=== PATIENT | female | born 1980 | race Caucasian/White ===

== ENCOUNTER → 2016-08-29 | Outpatient (CLI) | payer BC | END | disposition home or self-care (01) | LOC: C.LAB1850 11:47 | PROVIDERS: ATTEND Psychiatry & Neurology Neurology | DX: R90.89 Other abnormal findings on diagnostic imaging of central nervous system (principal); G43.709 Chronic migraine without aura, not intractable, without status migrainosus ==

== ENCOUNTER → 2017-02-22 | Outpatient (CLI) | payer BC ==
[2017-02-26 07:29] LABS: VIT B1 PLASMA(THIAMIN)**90353 29 nmol/L (8-30)
== END | disposition home or self-care (01) ==
LOC: C.LAB1850 10:39
PROVIDERS: ATTEND Psychiatry & Neurology Neurology
DX: E53.8 Deficiency of other specified B group vitamins (principal); E51.9 Thiamine deficiency, unspecified; R79.0 Abnormal level of blood mineral

== ENCOUNTER → 2017-04-27 | Outpatient (CLI) | payer BC ==
[~2017-04-27] MED LIST: GADAVIST IV PRN
--- NOTE | 2017-04-27 09:43 | DIAGNOSTIC IMAGING REPORT ---
MRI OF THE CERVICAL SPINE WITH AND WITHOUT CONTRAST CLINICAL HISTORY: Upper extremity numbness. Possible multiple sclerosis. COMPARISON: None. TECHNIQUE: Utilizing a 1.5 Maria T magnet and dedicated coil, multiplanar, multiecho imaging of the cervical spine was performed before and after intravenous administration of 7.5 of Gadavist. FINDINGS: Alignment of the cervical spine is anatomic. Vertebral body heights are maintained. There is no marrow replacement or marrow edema. There is no intracanalicular mass or fluid collection. Cervical cord signal and caliber are normal. The MRI of the brain will be reported separately. C2-C3: The central canal and neural foramen are patent. C3-C4: The central canal and neural foramen are patent. C4-C5: There is disc bulge with a small superimposed central disc protrusion. There is minimal narrowing of the central canal and both neural foramen. C5-C6: Central canal and neural foramen are patent. C6-C7: The central canal and neural foramen are patent. C7-T1: The central canal and neural foramen are patent. IMPRESSION: 1. Normal cervical cord signal and caliber. No foci of demyelination within the cervical cord by MRI. 2. Disc bulge with small central disc protrusion at C4-C5 that results in minimal narrowing of the central canal and mild narrowing of both neural foramen, slightly greater on the right. Electronically signed by: Cayden Hodge M.D. 04/27/2017 9:41 AM Dictated Date/Time: 04/27/2017 9:34 AM
--- NOTE | 2017-04-27 09:49 | DIAGNOSTIC IMAGING REPORT ---
BRAIN COMBO FOR MS CLINICAL HISTORY: 36 years-old Female presenting with G44.039 Paroxysmal hemicrania, R20.0 Left facial [id number], headaches, bilateral facial and upper extremity numbness more on the right, sleepless nights. TECHNIQUE: Multisequence, multiplanar MR imaging of the brain was performed before and after the administration of intravenous contrast. IV contrast: 7.5 mL of Gadavist. COMPARISON: None available for comparison. FINDINGS: Ventricles and sulci normal in size. Three foci of T2/FLAIR hyperintensity noted in the subcortical white matter of the right frontal lobe. These do not demonstrate restricted diffusion or enhancement on postcontrast imaging. No mass effect or midline shift. No restricted diffusion to suggest acute ischemia. No hemorrhage. No extra-axial fluid collection. T2 skull base flow voids preserved. Bone marrow signal intensity within the calvarium within normal limits. Mild mucosal thickening in the maxillary sinuses, ethmoid air cells, and minimally in the frontal sinuses. IMPRESSION: 1. Three nonspecific foci of T2/FLAIR hyperintensity in the subcortical white matter of the right frontal lobe. No associated restricted diffusion or enhancement. This is not characteristic of a single entity. The patient's age would suggest against chronic small vessel ischemic change. Demyelinating disease or an atypical infectious etiology cannot be excluded, though the absence of enhancement would suggest against active disease. This could be followed. Electronically signed by: Boom Mao M.D. 04/27/2017 9:48 AM Dictated Date/Time: 04/27/2017 9:40 AM
== END | disposition home or self-care (01) ==
LOC: C.MRIBC 07:48
PROVIDERS: ATTEND Psychiatry & Neurology Neurology
DX: G44.039 Episodic paroxysmal hemicrania, not intractable (principal); R20.0 Anesthesia of skin; M50.20 Other cervical disc displacement, unspecified cervical region

== ENCOUNTER → 2017-05-19 | Outpatient (CLI) | payer BC | END | disposition home or self-care (01) | LOC: C.PAPS 13:43 | PROVIDERS: ATTEND Obstetrics & Gynecology | DX: Z01.419 Encounter for gynecological examination (general) (routine) without abnormal findings (principal) ==

== ENCOUNTER → 2017-09-08 | Outpatient (CLI) | payer BC ==
[2017-09-08 13:16] LABS: BASO % 0.6 %; BASO ABS # 0.04 K/uL (0-0.2); EOS % 2.4 %; EOS ABS # 0.16 K/uL (0-0.5); HEMATOCRIT 41.6 % (37-47); HEMOGLOBIN 14.1 g/dL (12.0-16.0); IG# 0.02 K/uL (0.00-0.02); LYMPH % 34.3 %; MEAN CELL VOLUME 90.8 fL (80-100); MEAN CORPUSCULAR HEMOGLOBIN 30.8 pg (25-34); MEAN CORPUSCULAR HGB CONC 33.9 g/dl (32-36); MEAN PLATELET VOLUME 9.8 fL (7.4-10.4); MONO % 6.9 %; MONO ABS # 0.46 K/uL (0.11-0.59); NEUT % 55.5 %; NEUT ABS # 3.72 K/uL (1.4-6.5); PLATELET COUNT 352 K/uL (130-400); RED CELL DISTRIBUTION WIDTH CV 12.3 % (11.5-14.5); RED CELL DISTRIBUTION WIDTH SD 40.9 fL (36.4-46.3)
[2017-09-08 13:41] LABS: ALBUMIN 3.6 gm/dl (3.4-5.0); ALT/SGPT 32 U/L (12-78); AST/SGOT 20 U/L (15-37); BLOOD UREA NITROGEN 10 mg/dl (7-18); CARBON DIOXIDE 26 mmol/L (21-32); CREATININE 0.65 mg/dl (0.60-1.20); GLUCOSE 85 mg/dl (70-99); POTASSIUM 3.8 mmol/L (3.5-5.1); SODIUM 138 mmol/L (136-145)
[2017-09-08 13:52] LABS: ALKALINE PHOSPHATASE 81 U/L (45-117); TOTAL PROTEIN 7.1 gm/dl (6.4-8.2)
== END | disposition home or self-care (01) ==
LOC: C.LAB1850 11:50
PROVIDERS: ATTEND Physician Assistant
DX: R05 Cough (principal); R06.02 Shortness of breath; R53.83 Other fatigue

== ENCOUNTER → 2017-09-20 | Outpatient (CLI) | payer BC ==
--- NOTE | 2017-09-20 11:42 | DIAGNOSTIC IMAGING REPORT ---
CHEST 2 VIEWS ROUTINE CLINICAL HISTORY: SHORTNESS OF BREATH dyspnea COMPARISON STUDY: No previous studies for comparison. FINDINGS: The bones soft tissues and hemidiaphragms are normal. The cardiomediastinal silhouette is normal. The lungs are clear. The pulmonary vasculature is normal. IMPRESSION: Negative chest. The above report was generated using voice recognition software. It may contain grammatical, syntax or spelling errors. Electronically signed by: Emerson Ng M.D. 09/20/2017 11:40 AM Dictated Date/Time: 09/20/2017 11:40 AM
== END | disposition home or self-care (01) ==
LOC: C.RADBC 11:27
PROVIDERS: ATTEND Family Medicine
DX: R05 Cough (principal); R06.02 Shortness of breath; R53.83 Other fatigue

== ENCOUNTER 2020-02-19 13:39 | Inpatient (IN) ==
--- NOTE | 2020-02-19 13:55 | Emergency Department Note ---
Impression & Plan Complicated migraine, Expressive aphasia ED Provider Note NAME: KATELIN AREVALO AGE: 39 SEX: F : 1980 ARRIVES VIA: Walk-In INFORMANT: Patient, ED PROVIDER(S): Corky Gallo MD Chief Complaint: Numbness, difficulty with speaking HPI: Patient states approximately 1/2 hours prior to arrival patient did have an episode of difficulty with expressing words. The patient states she was able to think of them but unable to express them. The patient did have some associated left upper extremity numbness. Patient is not on control. The patient 3 weeks ago did have a sedation same day procedure completed to remove a cyst from her foot. The patient did have a fibular fracture and is currently in a walking boot but no surgery. Patient does not complain of any calf pain ankle pain recent travel. The patient does have cover test that is pending completed from last . Patient denies any fevers chills chest pains or shortness of breath. The patient states that her symptoms have improved but does have some persistent right sided retro-orbital headache that is been persistent for appro ximately 2 weeks. Nothing is made this any better or worse. No prior history of seizures or trauma. ROS: See HPI for pertinent positives and negatives. A total of 10 systems were reviewed and otherwise negative. Past medical history: See below Surgical history: See below Social history: See below Physical Exam: GENERAL: Well appearing, well nourished, NAD, non-toxic. Wearing a mask. EYE EXAM: Normal conjunctiva. PERRL, no anisocoria and EOM's grossly intact w/o pain. NECK: Supple, no nuchal rigidity, no adenopathy, non-tender. No signs of meningismus. LUNGS: Clear to auscultation. Normal chest wall mechanics. HEART: NSR, no MRG. ABDOMEN: Abdomen soft, non-tender, normo-active bowel sounds, no masses, no rebound or guarding. BACK: No CVA TTP. SKIN: No rashes and no bruising. UPPER EXTREMITIES: Upper extremities are grossly normal. LOWER EXTREMITIES: Grossly normal, no edema. Walking boot removed. Negative Homans sign bilaterally. NEURO EXAM: A&O x3, cranial nerves II-XII grossly intact, normal speech, moves all 4 extremities on command w/o issue. Good finger to nose, no drift, no sensory deficits. Differential diagnoses: Infection, dehydration, metabolic abnormality, hy po/hyperglycemia, electrolyte disturbance, anemia, hypoxia, cardiac sources, intracerebral event, toxicologic, neurologic, as well as other pathologies. Course: Patient was seen and evaluated the bedside. Full history physical exam was performed. EKG: Indication: Weakness Normal sinus rhythm, rate of 61, normal intervals, normal axis, T wave inversion in lead III not in contiguous leads, no ST changes. No prior EKGs for comparison. Imaging Studies: Radiology results as stated below per my review in the radiologist's interpretation: CT head/brain wo con CT DOSE: 690.05 mGycm HISTORY: Mental status change ?TIA, LUE numb/speech now resolved, R retro eye BALDWIN TECHNIQUE: Multiaxial CT images of the head were performed without the use of intravenous contrast. A dose lowering technique was utilized adhering to the principles of ALARA. Comparison: None. Findings: The paranasal sinuses and mastoid air cells are clear. The calvarium and skull base are intact. The ventricles and sulci are within normal limits. There is no mass, hematoma, midline shift, or acute infarct. Impression: No acute intracranial abnormality. ACT 112: Negative or not required by law. The above report was generated using voice recognition software. It may contain grammatical, syntax or spelling errors. Electronically signed by: Emerson Ng M.D. 02/19/2020 3:54 PM Dictated: 02/19/20 1553 Transcribed: 02/19/20 1553 CTA ANGIOGRAPHY OF THE HEAD CLINICAL HISTORY: ?TIA, LUE numb/speech now resolved, R retro eye BALDWIN COMPARISON STUDY: MRI of the brain April 27, 2017. TECHNIQUE: Helical axial images of the head were obtained following uneventful intravenous administration of 120 cc of Optiray 320. Sagittal and coronal reconstructions were viewed as well as maximal intensity projections on an independent 3-D workstation. Automated exposure control was utilized for the study. A dose lowering technique was utilized adhering to the principles of ALARA. CT DOSE: 1049.47 mGycm FINDINGS: Please note that the head CT will be reported separately. Ventricular system is normal. No acute intracranial hemorrhage, midline shift or mass effect is present. Talar cisterns are patent. There are no extra-axial collections. Note is made of multifocal narrowing versus occlusion within the right M2 branches. There may also be narrowing of the distal M1 segment of the right MCA. Adjacent vessels could reflect collaterals or venous opacification. These findings are age indeterminate. Left M1 and M2 segments appear slightly irregular but are probably within normal limits. The right vertebral artery is hypoplastic and ends in PICA. The left vertebral artery is patent. The basilar a rtery is patent. The bilateral posterior cerebral arteries are patent. There is no intracranial aneurysm. IMPRESSION: 1. Multifocal narrowing versus occlusion with distal reconstitution within sev eral right M2 branches. These findings are age indeterminate and differential considerations include vasospasm, strictures or vasculitis. Thrombosis is also within the differential although considered less likely. 2. No intracranial aneurysm. ACT 112: Negative or not required by law. Electronically signed by: Cayden Hodge M.D. 02/19/2020 4:19 PM Dictated: 02/19/20 1557 Transcribed: 02/19/[address] angio neck with con CLINICAL HISTORY: 39 years-old Female with ?TIA, LUE numb/speech now resolved, R retro eye BALDWIN. Acute strokelike symptoms with headache COMPARISON STUDY: CTA of the head of same day TECHNIQUE: Following the IV administration of 120 mL of Optiray 320, CT angiogram of the neck was performed from the aortic arch to the skull base. Images are reviewed in the axial, sagittal, and coronal planes. 3-D MIPS images are created and assessed. IV contrast was administered without complication. All measurements were calculated based on NASCET criteria. A dose lowering technique was utilized adhering to the principles of ALARA. FINDINGS: The imaged opacified pulmonary artery is unremarkable. Three-vessel morphology of aortic arch. Innominate and proximal subclavian arteries appear patent. Patent common carotid arteries. There is a small web noted within the posterior aspect of the proximal right ICA which measures approximately 3 mm on image 142 series 4. Streak artifact from dental amalgam hardware limits the study. A tiny web measuring approximately 2 mm also noted involving the posterior wall of the proximal left ICA on image 150 series 4. Internal carotid arteries are otherwise unremarkable. Dominant left vertebral artery. Developmentally diminutive right vertebral artery. There is no aneurysm, dissection, high-grade stenosis or proximal branch occlusion. The majority of the right ICA terminates into the PICA. Basilar artery is patent. Lung apices are clear. No pneumothorax. Unremarkable thyroid and soft tissues. Bones appear intact. Mild polypoid mucosal thickening of the right maxillary sinus. IMPRESSION: 1. No aneurysm, dissection, high-grade stenosis or proximal branch occlusion. 2. Small webs are noted involving the proximal cervical segments of the bilateral internal carotid arteries. ACT 112: Negative or not required by law. The above report was generated using voice recognition software. It may contain grammatical, syntax or spelling errors. Electronically signed by: Ramy Rod M.D. 02/19/2020 4:17 PM Dictated: 02/19/20 160 Transcribed: 02/19/20 160 Cardiac monitoring: An order was placed for continuous cardiac monitoring. The monitor shows a rate of 76 with sinus rhythm. MDM: Patient does presents with expressive aphasia headache and some numbness which is since resolved. Blood work was obtained along with a CT head and CTA of the head neck. CT head negative. CTA of the head neck does show possible spasm versus vasculitis versus thrombosis of thrombosis to be less likely. Upon reassessment the patient does feel improved. The patient has no further headache. The patient is not had any recurrence of symptoms. I did speak with the on-call neurologist Dr. Sherman who recommended an MR brain and if that is negative he recommended verapamil SR 180 mg daily help avoid vasospasm and likely complicated migraine symptoms. I did inform the patient of this plan. I had a discussion with the MR tach as well as the on-call radiologist Dr. Hodge.. Because the patient does have a pending code tests even if her current symptoms are not as suspicious it would require terminal clean and there are 5-6 MRIs that are currently pending. I did discuss this with the patient the patient is amenable to waiting in the emergency department. I believe this is reasonable. A diet was ordered. Patient is pending MRI and the patient was signed out to the evening physician pending reevaluation and treatment. I did reevaluate the patient's several times. The patient still has not had any recurrence of symptoms. The patient was pending MRI upon signout to Dr. pickering. Observation: Patient has PMX of migraines. Observation began at 1400 and was necessary in order to rule out, monitor, reassess and mitigate the risk of the patient, ensure their relative safety, and potentially avoid an admission. Upon re- evaluation, observation revealed that the patient could not be safely discharged at this time after 7 hours of observation.. Patient was feeling well at time of signout to the nighttime physician Dr. pickering pending MRI and subsequent disposition. Past Med/Surg History Medical History Environmental allergies History of skin cancer REMOVED Migraine Surgical History History of anesthesia reaction SLOW TO WAKE UP History of colonoscopy History of esophagogastroduodenoscopy (EGD) History of surgery EMBRYO DONATION History of tonsillectomy History of tooth extraction Hx of LASIK BOTH EYES Family History Mother Family history of diabetes mellitus Hypertension Grandmother (Paternal) Family hx of colon cancer Father , age 68 of an NC Heart disease Stroke Myocardial infarction Social History Smoking Status: Never smoker Second Hand Exposure: Yes ( A CHILD); Hx Alcohol Use: Yes Alcohol type: beer Alcohol Intake Frequency: 2-3 x/Week Alcohol Intake Frequency Comment: 2 or 3 beers per week Hx Substance Use: No Preferred Language: Turkish Communication Ability: Effective Control And Recovery Special Tactics Required: No Beliefs That Will Affect Care: None Current Living Situation: Family current occupational status: employed 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 Feels Safe at Home: Yes Allergies Allergies Allergy/AdvReac Type Severity Reaction Status Date / Time Sulfa (Sulfonamide Allergy Unknown Rash Verified 02/19/20 14:18 Antibiotics) casein AdvReac Severe Verified 02/20/20 00:21 whey AdvReac Severe Verified 02/20/20 00:21 PROTEIN Allergy Severe SEE NOTE Uncoded 02/19/20 14:18 BELOW - FACIAL NUMBNESS/MIGRAINES Home Meds Home Medications Medication Instructions Recorded Confirmed levocetirizine 5 mg tablet 5 mg PO DAILY PRN 04/29/19 02/19/20 montelukast [Singulair] 10 mg PO QPM 12/27/19 02/19/20 Previous Rx's Medication Instructions Recorded aspirin 81 mg PO DAILY #90 tab 02/20/20 atorvastatin 40 mg PO QAM #90 tab 02/20/20 verapamil 180 mg PO DAILY #90 cap 02/20/20 Results & Data (ED) Vital Signs Vital Signs - 24 hr 02/19/20 18:30 02/19/20 18:31 02/19/20 19:00 Pulse Rate 65 65 65 Pulse Rate [Right Finger] Pulse Rate from SpO2 Sensor 64 65 68 Respiratory Rate 16 16 17 Respiratory Depth Blood Pressure 115/69 121/63 Blood Pressure [Right Arm] Blood Pressure Mean 74 71 Blood Pressure Mean [Right Arm] Blood Pressure Position [Right Arm] Pulse Oximetry 96 95 95 Oxygen Delivery Method 02/19/20 19:01 02/19/20 19:30 02/19/20 19:31 Pulse Rate 67 79 85 Pulse Rate [Right Finger] Pulse Rate from SpO2 Sensor 68 80 83 Respiratory Rate 17 18 23 Respiratory Depth Blood Pressure 114/84 Blood Pressure [Right Arm] Blood Pressure Mean 94 Blood Pressure Mean [Right Arm] Blood Pressure Position [Right Arm] Pulse Oximetry 95 96 95 Oxygen Delivery Method 02/19/20 20:00 02/19/20 20:01 02/19/20 20:30 Pulse Rate 74 76 73 Pulse Rate [Right Finger] Pulse Rate from SpO2 Sensor 75 75 73 Respiratory Rate 15 15 18 Respiratory Depth Blood Pressure 115/78 Blood Pressure [Right Arm] Blood Pressure Mean 83 Blood Pressure Mean [Right Arm] Blood Pressure Position [Right Arm] Pulse Oximetry 96 95 94 Oxygen Delivery Method 02/19/20 21:00 02/19/20 21:01 02/19/20 21:30 Pulse Rate 77 79 78 Pulse Rate [Right Finger] Pulse Rate from SpO2 Sensor 77 78 78 Respiratory Rate 20 15 19 Respiratory Depth Blood Pressure 117/66 Blood Pressure [Right Arm] Blood Pressure Mean 83 Blood Pressure Mean [Right Arm] Blood Pressure Position [Right Arm] Pulse Oximetry 95 94 96 Oxygen Delivery Method 02/19/20 22:40 02/19/20 22:41 02/19/20 23:00 Pulse Rate 78 77 Pulse Rate [Right Finger] 65 Pulse Rate from SpO2 Sensor 76 Respiratory Rate 23 18 16 Respiratory Depth Normal Blood Pressure 117/74 Blood Pressure [Right Arm] 114/79 Blood Pressure Mean 82 Blood Pressure Mean [Right Arm] 90 Blood Pressure Position [Right Arm] Lying Pulse Oximetry 95 96 Oxygen Delivery Method Room Air Home Medications Current Medication List: was personally reviewed by me Laboratory Data Attestation: I reviewed the patient's lab results. Result diagrams: 02/20/20 05:53 02/20/20 05:53 Lab Results 0702/19/20 02/19/20 Range/Units 14:50 14:50 14:50 WBC 9.16 (4.8-10.8) K/uL RBC 4.70 (4.2-5.4) M/uL Hgb 14.6 (12.0-16.0) g/dL Hct 42.0 (37-47) % MCV 89.4 (80-100) fL MCH 31.1 (25-34) pg MCHC 34.8 (32-36) g/dL RDW Std Deviation 41.1 (36.4-46.3) fL RDW Coeff of Zeny 12.7 (11.5-14.5) % Plt Count 381 (130-400) K/uL MPV 9.5 (7.4-10.4) fL Immature Gran % (Auto) 0.3 % Neut % (Auto) 60.8 % Lymph % (Auto) 30.0 % [place] % (Auto) 7.1 % Eos % (Auto) 1.5 % Baso % (Auto) 0.3 % Neut # (Auto) 5.56 (1.4-6.5) K/uL Lymph # (Auto) 2.75 (1.2-3.4) K/uL [place] # (Auto) 0.65 H (0.11-0.59) K/uL Eos # (Auto) 0.14 (0-0.5) K/uL Baso # (Auto) 0.03 (0-0.2) K/uL Immature Gran # (Auto) 0.03 H (0.00-0.02) K/uL PT 10.8 (9.0-12.0) Seconds INR 1.0 (0.9-1.1) APTT 27.8 (21.0-31.0) Seconds PTT Ratio 1.0 Sodium 139 (136-145) mmol/L Potassium 3.5 (3.5-5.1) mmol/L Chloride 108 H (98-107) mmol/L Carbon Dioxide 26 (21-32) mmol/L Anion Gap 5.0 (3-11) BUN 8 (7-18) mg/dl Creatinine 0.87 (0.6-1.2) mg/dl Est Cr Clr Drug Dosing 85.8 ml/min Est GFR ( Amer) 95.9 Est GFR (Non-Af Amer) 82.7 BUN/Creatinine Ratio 9.0 L (10-20) Glucose 83 (70-99) mg/dl POC Glucose (70-99) mg/dl Calcium 8.9 (8.5-10.1) mg/dl Magnesium 2.1 (1.8-2.4) mg/dl Total Bilirubin 0.5 (0.2-1) mg/dl AST 16 (15-37) U/L ALT 30 (12-78) U/L Alkaline Phosphatase 78 (45-117) U/L Troponin I < 0.015 (0-0.045) ng/ml Total Protein 7.0 (6.4-8.2) gm/dl Albumin 3.5 (3.4-5.0) gm/dl Globulin 3.5 (2.5-4.0) gm/dl Albumin/Globulin Ratio 1.0 (0.9-2) / Range/Units 15:01 WBC (4.8-10.8) K/uL RBC (4.2-5.4) M/uL Hgb (12.0-16.0) g/dL Hct (37-47) % MCV (80-100) fL MCH (25-34) pg MCHC (32-36) g/dL RDW Std Deviation (36.4-46.3) fL RDW Coeff of Zeny (11.5-14.5) % Plt Count (130-400) K/uL MPV (7.4-10.4) fL Immature Gran % (Auto) % Neut % (Auto) % Lymph % (Auto) % [place] % (Auto) % Eos % (Auto) % Baso % (Auto) % Neut # (Auto) (1.4-6.5) K/uL Lymph # (Auto) (1.2-3.4) K/uL [place] # (Auto) (0.11-0.59) K/uL Eos # (Auto) (0-0.5) K/uL Baso # (Auto) (0-0.2) K/uL Immature Gran # (Auto) (0.00-0.02) K/uL PT (9.0-12.0) Seconds INR (0.9-1.1) APTT (21.0-31.0) Seconds PTT Ratio Sodium (136-145) mmol/L Potassium (3.5-5.1) mmol/L Chloride (98-107) mmol/L Carbon Dioxide (21-32) mmol/L Anion Gap (3-11) BUN (7-18) mg/dl Creatinine (0.6-1.2) mg/dl Est Cr Clr Drug Dosing ml/min Est GFR ( Amer) Est GFR (Non-Af Amer) BUN/Creatinine Ratio (10-20) Glucose (70-99) mg/dl POC Glucose 81 (70-99) mg/dl Calcium (8.5-10.1) mg/dl Magnesium (1.8-2.4) mg/dl Total Bilirubin (0.2-1) mg/dl AST (15-37) U/L ALT (12-78) U/L Alkaline Phosphatase (45-117) U/L Troponin I (0-0.045) ng/ml Total Protein (6.4-8.2) gm/dl Albumin (3.4-5.0) gm/dl Globulin (2.5-4.0) gm/dl Albumin/Globulin Ratio (0.9-2) Administered Medications Discontinued Medications Acetaminophen (Tylenol) 650 mg PO Q4H PRN PRN Reason: pain/fever Stop: 03/21/20 01:17 Last Admin: 02/20/20 03:54 Dose: 650 mg Documented by: [id number] Aspirin (Ecotrin Ectab) 81 mg PO DAILY [facility] Stop: 03/21/20 08:59 Last Admin: 02/20/20 08:17 Dose: 81 mg Documented by: [id number] Atorvastatin Calcium (Lipitor) [facility] Stop: 03/21/20 08:59 Last Admin: 02/20/20 08:17 Dose: 40 mg Documented by: [id number] Dexamethasone (Decadron) 10 mg IV NOW ONE Stop: 02/19/20 14:08 Last Admin: 02/19/20 15:07 Dose: 10 mg Documented by: [id number] Diphenhydramine HCl (Benadryl) 25 mg IV NOW STA Stop: 02/19/20 14:08 Last Admin: 02/19/20 15:07 Dose: 25 mg Documented by: [id number] Enoxaparin Sodium (Lovenox) 40 mg SQ Q12H YOHANNES Stop: 03/21/20 08:59 Last Admin: 02/20/20 08:17 Dose: 40 mg Documented by: [id number] Sodium Chloride (Nss 1000ml) 1,000 mls @ 999 mls/hr IV .Q1H1M YOHANNES Stop: 02/19/20 15:15 Last Infusion: 02/19/20 16:41 Dose: 0 mls/hr Documented by: [id number] Admin: 02/19/20 14:50 Dose: 999 mls/hr Documented by: [id number] Ioversol (Optiray 320 125ml) 120 ml IV ONCE PRN PRN Reason: Interaction Checking Stop: 02/23/20 15:56 Last Admin: 02/19/20 15:57 Dose: 120 ml Documented by: [id number] Ketorolac Tromethamine (Toradol) 30 mg IV NOW STA Stop: 02/19/20 14:08 Last Admin: 02/19/20 15:06 Dose: 30 mg Documented by: [id number] Metoclopramide HCl (Reglan) 10 mg IV NOW STA Stop: 02/19/20 14:08 Last Admin: 02/19/20 15:07 Dose: 10 mg Documented by: [id number] Discharge Plan Visit Data *Final* Discharge Date/Time: 02/20/20 01:07 Chief Complaint: Neuro Symptoms/Deficit Stated Complaint: SORETHROAT,VOMITING,NAUSEA,NEURO SYMPTOMS,COVID PE ED Provider: Ibrahima Pickering Discharge Problem: Complicated migraine, Expressive aphasia Patient Disposition: Admitted As Inpatient Condition: Good Discharge Instructions Interventions: ED Discharge Assessment Last Done: 02/20/20 01:07
[2020-02-19] MEDS ORDERED: DEXAMETHASONE SOD INJ 10 MG/ML VIAL IV ONE (14:07)
[2020-02-19] MEDS ORDERED: METOCLOPRAMIDE HCL INJ 5 MG/ML 2 ML VIAL IV STA (14:07)
[2020-02-19] MEDS ORDERED: KETOROLAC 30 MG/ML VIAL IV STA (14:07)
[2020-02-19] MEDS ORDERED: DiphenhydrAMINE HCL 50 MG/ML VIAL IV STA (14:07)
[2020-02-19] MEDS ORDERED: SODIUM CHLORIDE 0.9% 1000ML 1,000 ML IV SCH (14:15)
[2020-02-19 15:15] LABS: Basophils # (auto) 0.03 K/uL (0-0.2); Basophils % (auto) 0.3 %; Eosinophils # (auto) 0.14 K/uL (0-0.5); Eosinophils % (auto) 1.5 %; Hemoglobin 14.6 g/dL (12.0-16.0); Immature Granulocytes # (auto) 0.03 K/uL (0.00-0.02); Immature Granulocytes % (auto) 0.3 %; Lymphocytes # (auto) 2.75 K/uL (1.2-3.4); Mean Corpuscular Hemoglobin 31.1 pg (25-34); Mean Corpuscular Hgb Conc 34.8 g/dL (32-36); Mean Corpuscular Volume 89.4 fL (80-100); Mean Platelet Volume 9.5 fL (7.4-10.4); Monocytes # (auto) 0.65 K/uL (0.11-0.59); Monocytes % (auto) 7.1 %; Neutrophils # (auto) 5.56 K/uL (1.4-6.5); Neutrophils % (auto) 60.8 %; Platelet Count 381 K/uL (130-400); RDW Coefficient of Variation 12.7 % (11.5-14.5); RDW Standard Deviation 41.1 fL (36.4-46.3); White Blood Count 9.16 K/uL (4.8-10.8)
[2020-02-19 15:31] LABS: Alanine Aminotransferase 30 U/L (12-78); Albumin Level 3.5 gm/dl (3.4-5.0); Aspartate Aminotransferase 16 U/L (15-37); Blood Urea Nitrogen 8 mg/dl (7-18); Calcium 8.9 mg/dl (8.5-10.1); Carbon Dioxide 26 mmol/L (21-32); Chloride 108 mmol/L (98-107); Creatinine Clr Calc Pharmacy 85.8 ml/min; Est GFR (African American) 95.9; Est GFR (Non-African American) 82.7; Glucose 83 mg/dl (70-99); Magnesium 2.1 mg/dl (1.8-2.4); Potassium 3.5 mmol/L (3.5-5.1); Sodium 139 mmol/L (136-145)
[2020-02-19 15:35] LABS: Alkaline Phosphatase 78 U/L (45-117); Bilirubin,Total 0.5 mg/dl (0.2-1); Globulin 3.5 gm/dl (2.5-4.0); Partial Thromboplastin Time 27.8 Seconds (21.0-31.0); Prothrombin Time 10.8 Seconds (9.0-12.0); Troponin I < 0.015 ng/ml (0-0.045)
--- NOTE | 2020-02-19 15:56 | CT Scan Report ---
CT head/brain wo con CT DOSE: 690.05 mGycm HISTORY: Mental status change ?TIA, LUE numb/speech now resolved, R retro eye BALDWIN TECHNIQUE: Multiaxial CT images of the head were performed without the use of intravenous contrast. A dose lowering technique was utilized adhering to the principles of ALARA. Comparison: None. Findings: The paranasal sinuses and mastoid air cells are clear. The calvarium and skull base are int act. The ventricles and sulci are within normal limits. There is no mass, hematoma, midline shift, or acute infarct. Impression: No acute intracranial abnormality. ACT 112: Negative or not required by law. The above report was generated using voice recognition software. It may contain grammatical, syntax or spelling errors. Electronically signed by: Emerson Ng M.D. 02/19/2020 3:54 PM
[2020-02-19] MEDS ORDERED: OPTIRAY 320 125ml IV PRN (15:57)
--- NOTE | 2020-02-19 16:18 | CT Scan Report ---
CT angio neck with con CLINICAL HISTORY: 39 years-old Female with ?TIA, LUE numb/speech now resolved, R retro eye BALDWIN. Acu te strokelike symptoms with headache COMPARISON STUDY: CTA of the head of same day TECHNIQUE: Following the IV administration of 120 mL of Optiray 320, CT angiogram of the neck was per formed from the aortic arch to the skull base. Images are reviewed in the axial, sagittal, and tobias l planes. 3-D MIPS images are created and assessed. IV contrast was administered without complication . All measurements were calculated based on NASCET criteria. A dose lowering technique was utilized adhering to the principles of ALARA. FINDINGS: The imaged opacified pulmonary artery is unremarkable. Three-vessel morphology of aortic arch. Innomi maverick and proximal subclavian arteries appear patent. Patent common carotid arteries. There is a small web noted within the posterior aspect of the proximal right ICA which measures approximately 3 mm on image 142 series 4. Streak artifact from dental amalgam hardware limits the study. A tiny web measur ing approximately 2 mm also noted involving the posterior wall of the proximal left ICA on image 150 series 4. Internal carotid arteries are otherwise unremarkable. Dominant left vertebral artery. Devel opmentally diminutive right vertebral artery. There is no aneurysm, dissection, high-grade stenosis o r proximal branch occlusion. The majority of the right ICA terminates into the PICA. Basilar artery i s patent. Lung apices are clear. No pneumothorax. Unremarkable thyroid and soft tissues. Bones appear intact. M ild polypoid mucosal thickening of the right maxillary sinus. IMPRESSION: 1. No aneurysm, dissection, high-grade stenosis or proximal branch occlusion. 2. Small webs are noted involving the proximal cervical segments of the bilateral internal carotid ar teries. ACT 112: Negative or not required by law. The above report was generated using voice recognition software. It may contain grammatical, syntax o r spelling errors. Electronically signed by: Ramy Rod M.D. 02/19/2020 4:17 PM
--- NOTE | 2020-02-19 16:21 | CT Scan Report ---
CTA ANGIOGRAPHY OF THE HEAD CLINICAL HISTORY: ?TIA, LUE numb/speech now resolved, R retro eye BALDWIN COMPARISON STUDY: MRI of the brain April 27, 2017. TECHNIQUE: Helical axial images of the head were obtained following uneventful intravenous administr ation of 120 cc of Optiray 320. Sagittal and coronal reconstructions were viewed as well as maximal i ntensity projections on an independent 3-D workstation. Automated exposure control was utilized for the study. A dose lowering technique was utilized adhering to the principles of ALARA. CT DOSE: 1049.47 mGycm FINDINGS: Please note that the head CT will be reported separately. Ventricular system is normal. No acute intracranial hemorrhage, midline shift or mass effect is present. Talar cisterns are patent. Th ere are no extra-axial collections. Note is made of multifocal narrowing versus occlusion within the right M2 branches. There may also be narrowing of the distal M1 segment of the right MCA. Adjacent ve ssels could reflect collaterals or venous opacification. These findings are age indeterminate. Left M 1 and M2 segments appear slightly irregular but are probably within normal limits. The right vertebra l artery is hypoplastic and ends in PICA. The left vertebral artery is patent. The basilar artery is patent. The bilateral posterior cerebral arteries are patent. There is no intracranial aneurysm. IMPRESSION: 1. Multifocal narrowing versus occlusion with distal reconstitution within several right M2 branches. These findings are age indeterminate and differential considerations include vasospasm, strictures o r vasculitis. Thrombosis is also within the differential although considered less likely. 2. No intracranial aneurysm. ACT 112: Negative or not required by law. Electronically signed by: Cayden Hodge M.D. 02/19/2020 4:19 PM
--- NOTE | 2020-02-19 23:06 | Emergency Department Note ---
ED Visit Note The patient was taken in signout from Dr. Gallo at the change of shift. Please see that note for details. The patient was pending MRI. In brief the patient is a 39-year-old woman who presents to emergency department with symptoms of headache for the past 2 weeks with sore throat diarrhea and vomiting and then with difficulty speaking evolving today in the setting. Patient had a CT of the head and CT of the head and neck which demonstrated "Multifocal narrowing versus occlusion with distal reconstitution within several right M2 branches. These findings are age indeterminate and differential considerations include vasospasm, strictures or vasculitis. Thrombosis is also within the differential although considered less likely." Dr. Gallo discussed the case with neurology on-call, Dr. Sherman, and plan was for MRI of the brain for further clarification. If negative recommending treatment with verapamil for suspicion of possible Migraine. MRI was delayed due to the patient being tested for COVID-19 last week at [facility] with test results still pending. MRI was subsequently performed and demonstrates tiny right insular cortical in farction as well as suggestion of slow flow versus thrombus in the insular branch of the right MCA. I did review the findings with the patient at the bedside and she was agreeable with plan for admission. She continued to be asymptomatic. Case was discussed with Dr. Cosby, [facility] hospitalist, who will evaluate the patient for admission. Observation note: Indication: Stroke like symptoms. Patient, with stroke Family History, was first seen at 1400 hrs and the observation time began at 1400 hrs and was necessary in order to clarify diagnosis and avoid unnecessary admission . Upon re-evaluation, 9.3 hours of observation revealed that the patient should be admitted. Disposition date and time [02/19/2020 @ 2320]. --- MRI Preliminary Findings Only See Final Report For Complete Findings MRI HEAD : Impression: Subtle tiny right insula cortical infarction with suggestion of slow flow versus thrombus in the insular branch of the right middle cerebral artery on T2- weighted/FLAIR sequences. Periventricular and subcortical white matter T2-weighted/FLAIR hyperintensities, nonspecific. No masses or mass effect. Ventricles appear normal. Mucosal thickening in the right maxillary sinus. Radiologist: Fabio Patrick MD Study ready at 22:36 and initial results transmitted at 22:57 .
--- NOTE | 2020-02-20 00:25 | History & Physical Report ---
Date of Service February 20, 2020 Assessment & Plan (1) Stroke: 39-year-old female with history of hyperlipidemia presenting with small insular cortical stroke, question thrombus versus vasculitis versus vasospasm noted on CTA and MRI. Patient has been ill for approximately 2 weeks to include headache/fatigue/myalgias/sore throat/nausea/vomiting/diarrhea. COVID testing sent last and is pending. -Admit to medical floor telemetry monitoring -Neurochecks per protocol Check 2D echo Check hemoglobin A1c and lipid panel Check ESR, CRP, ANGÉLICA COVID test is pending. Some concern for hypercoagulability associated with COVID leading to stroke. This is been described in case reports of young patients with COVID 19. Will attempt to contact [place] [facility] in the morning to get results of COVID testing. Aspirin 81 mg p.o. daily -Question verapamil for possible vasospasm on discharge -Neurology consultation appreciated Present on Admission?: Yes (2) Pure hypercholesterolemia: Patient with a lipid panel drawn on 02/04/2019. Cholesterol = 227, HDL = 60, LDL = 144, VLDL = 23, triglyceride = 116. Patient currently not on any medications. Repeat fasting lipid panel in a.m. -Lipitor 40 mg p.o. daily Present on Admission?: Yes (3) Allergic rhinitis: Chronic. Well-controlled. Continue singular 10 mg p.o. every afternoon FENHep-Lock. Electrolytes within normal limits. Regular diet as tolerated Prophylaxisdue to concern for COVID possible hypercoagulability leading to stroke will initiate Lovenox 40 mg subcu twice daily Codefull Dispositionadmit to med telemetry Present on Admission?: Yes Admission and Anticipated Discharge Date Admission Date: 02/20/20 Anticipated date of discharge: 02/21/20 History of Present Illness Chief Complaint: CVA Primary Care Provider: Sarah Florian Karie Boyer is a 39yo female with history of HLP presenting with new insula cortical infarction. Patient reports she has not been feeling well for the last two weeks. She has had a headache, sore throat, muscle aches, fatigue, nausea and vomiting as well as some loss of taste sensation. She has not had fever/cough or SOB. This afternoon she was at home working when she spilled some water from her water bottle. She noted that her right hand was slightly clumsy and uncoordinated. She tried to call for her and was unable to speak. her asked her to stick out her tongue and noted that it was deviated therefore they came to [facility]. Patient reports that her neurological symptoms have resolved. Her speech is back to normal and she denies numbness, tingling or weakness. She continues to have a dull headache as well as sore throat, muscle aches and fatigue. Patient was seen last in clinic in [place] and had Covid testing sent. She is still waiting for the results. No recent travel. No direct contact with Covid-19 positive individuals. Her [id number] is an urgent care physician but he has not been ill. Patient has a history of complex migraine. She reports that this was secondary to food allergy - Casein and Whey. She has not had a migraine since eliminating these agents from her diet. She is currently not on any migrain prophylactic agents. ER Course: Dexamethasone 10mg IV, Benadryl 25mg IV, Toradol 30mg IV, Reglan 10mg IV, NSS x 1L Allergies Allergy/AdvReac Type Severity Reaction Status Date / Time Sulfa (Sulfonamide Allergy Unknown Rash Verified 02/19/20 14:18 Antibiotics) casein AdvReac Severe Verified 02/20/20 00:21 whey AdvReac Severe Verified 02/20/20 00:21 PROTEIN Allergy Severe SEE NOTE Uncoded 02/19/20 14:18 BELOW - FACIAL NUMBNESS/MIGRAINES Home Medications Home Medications Medication Instructions Recorded Confirmed Type levocetirizine 5 mg tablet 5 mg PO DAILY PRN 04/29/19 02/19/20 History montelukast [Singulair] 10 mg PO QPM 12/27/19 02/19/20 History methylprednisolone See Rx Instructions .ROUTE 02/19/20 Rx .COMPLEX #21 ea verapamil 180 mg PO DAILY 30 Days #30 tab 02/19/20 Rx Past Med/Surg History Medical History Environmental allergies History of skin cancer REMOVED Migraine Surgical History History of anesthesia reaction SLOW TO WAKE UP History of colonoscopy History of esophagogastroduodenoscopy (EGD) History of surgery EMBRYO DONATION History of tonsillectomy History of tooth extraction Hx of LASIK BOTH EYES Family History (Updated 02/20/20 @ 00:21 by Archana Cosby DO) Mother Family history of diabetes mellitus Grandmother (Paternal) Family hx of colon cancer Other Stroke Social History Smoking Status: Never smoker Second Hand Exposure: Yes ( A CHILD); Hx Alcohol Use: Yes Alcohol type: beer Hx Substance Use: No Preferred Language: Uzbek Communication Ability: Effective Licensed Marriage And Family Therapist Required: No Beliefs That Will Affect Care: None Current Living Situation: Spouse and Family Feels Safe at Home: Yes Review of Systems Review of Systems: All systems reviewed & are unremarkable except as noted in HPI & below Physical Exam Physical Exam: General: patient resting comfortably, NAD, non-toxic in appearance, AA&O x 4 Skin: warm, dry, intact, no rashes or lesions HEENT: NC/AT, PERRL, EOMI, anicteric sclera, conjunctiva without injection, external ear normal to inspection and nontender, nares patent, moist mucus membranes, dentition intact, no oropharyngeal lesions, neck supple, trachea midline, no LAD, no thyromegaly, no JVD Heart: +S1/S2, regular, no m/r/g Lungs: equal air entry bilaterally, no rales/rhonchi/wheezes Abd: +BS, soft, NT/ND, no masses/organomegaly/ascites Ext: warm, 2+ pulses in UE/LE bilaterally, no clubbing/cyanosis or edema Neuro: nonfocal, patient AA&O x 4, speech intact, no facial droop, CN II-XII intact, sensation to light touch intact, MS 5/5 in UE/LE bilaterally, coordination intact Results & Data Results & Data ([facility]) Vital Signs (Past 12 Hours) Vital Signs Temp Pulse Pulse Resp BP BP Pulse Ox 02/19/20 23:00 65 16 114/79 96 02/19/20 22:41 77 18 117/74 95 02/19/20 22:40 78 23 02/19/20 21:30 78 19 96 02/19/20 21:01 79 15 94 02/19/20 21:00 77 20 117/66 95 02/19/20 20:30 73 18 94 02/19/20 20:01 76 15 95 02/19/20 20:00 74 15 115/78 96 02/19/20 19:31 85 23 95 02/19/20 19:30 79 18 114/84 96 02/19/20 19:01 67 17 95 02/19/20 19:00 65 17 121/63 95 02/19/20 18:31 65 16 95 02/19/20 18:30 65 16 115/69 96 02/19/20 18:01 66 19 97 02/19/20 18:00 64 17 116/73 96 02/19/20 17:31 65 17 96 02/19/20 17:30 64 16 118/72 96 02/19/20 17:00 72 23 110/68 96 02/19/20 16:30 69 13 122/75 98 02/19/20 16:00 73 14 128/80 99 02/19/20 15:30 75 16 127/81 100 02/19/20 15:00 71 13 136/78 100 02/19/20 14:47 65 18 122/69 100 02/19/20 13:45 36.9 C 76 16 137/90 98 Laboratory Results Lab Results 02/19/20 02/19/20 02/19/20 Range/Units 14:50 14:50 14:50 WBC 9.16 (4.8-10.8) K/uL RBC 4.70 (4.2-5.4) M/uL Hgb 14.6 (12.0-16.0) g/dL Hct 42.0 (37-47) % MCV 89.4 (80-100) fL MCH 31.1 (25-34) pg MCHC 34.8 (32-36) g/dL RDW Std Deviation 41.1 (36.4-46.3) fL RDW Coeff of Zeny 12.7 (11.5-14.5) % Plt Count 381 (130-400) K/uL MPV 9.5 (7.4-10.4) fL Immature Gran % (Auto) 0.3 % Neut % (Auto) 60.8 % Lymph % (Auto) 30.0 % [place] % (Auto) 7.1 % Eos % (Auto) 1.5 % Baso % (Auto) 0.3 % Neut # (Auto) 5.56 (1.4-6.5) K/uL Lymph # (Auto) 2.75 (1.2-3.4) K/uL [place] # (Auto) 0.65 H (0.11-0.59) K/uL Eos # (Auto) 0.14 (0-0.5) K/uL Baso # (Auto) 0.03 (0-0.2) K/uL Immature Gran # (Auto) 0.03 H (0.00-0.02) K/uL PT 10.8 (9.0-12.0) Seconds INR 1.0 (0.9-1.1) APTT 27.8 (21.0-31.0) Seconds PTT Ratio 1.0 Sodium 139 (136-145) mmol/L Potassium 3.5 (3.5-5.1) mmol/L Chloride 108 H (98-107) mmol/L Carbon Dioxide 26 (21-32) mmol/L Anion Gap 5.0 (3-11) BUN 8 (7-18) mg/dl Creatinine 0.87 (0.6-1.2) mg/dl Est Cr Clr Drug Dosing 85.8 ml/min Est GFR ( Amer) 95.9 Est GFR (Non-Af Amer) 82.7 BUN/Creatinine Ratio 9.0 L (10-20) Glucose 83 (70-99) mg/dl POC Glucose (70-99) mg/dl Calcium 8.9 (8.5-10.1) mg/dl Magnesium 2.1 (1.8-2.4) mg/dl Total Bilirubin 0.5 (0.2-1) mg/dl AST 16 (15-37) U/L ALT 30 (12-78) U/L Alkaline Phosphatase 78 (45-117) U/L Troponin I < 0.015 (0-0.045) ng/ml Total Protein 7.0 (6.4-8.2) gm/dl Albumin 3.5 (3.4-5.0) gm/dl Globulin 3.5 (2.5-4.0) gm/dl Albumin/Globulin Ratio 1.0 (0.9-2) 02/19/20 Range/Units 15:01 WBC (4.8-10.8) K/uL RBC (4.2-5.4) M/uL Hgb (12.0-16.0) g/dL Hct (37-47) % MCV (80-100) fL MCH (25-34) pg MCHC (32-36) g/dL RDW Std Deviation (36.4-46.3) fL RDW Coeff of Zeny (11.5-14.5) % Plt Count (130-400) K/uL MPV (7.4-10.4) fL Immature Gran % (Auto) % Neut % (Auto) % Lymph % (Auto) % [place] % (Auto) % Eos % (Auto) % Baso % (Auto) % Neut # (Auto) (1.4-6.5) K/uL Lymph # (Auto) (1.2-3.4) K/uL [place] # (Auto) (0.11-0.59) K/uL Eos # (Auto) (0-0.5) K/uL Baso # (Auto) (0-0.2) K/uL Immature Gran # (Auto) (0.00-0.02) K/uL PT (9.0-12.0) Seconds INR (0.9-1.1) APTT (21.0-31.0) Seconds PTT Ratio Sodium (136-145) mmol/L Potassium (3.5-5.1) mmol/L Chloride (98-107) mmol/L Carbon Dioxide (21-32) mmol/L Anion Gap (3-11) BUN (7-18) mg/dl Creatinine (0.6-1.2) mg/dl Est Cr Clr Drug Dosing ml/min Est GFR ( Amer) Est GFR (Non-Af Amer) BUN/Creatinine Ratio (10-20) Glucose (70-99) mg/dl POC Glucose 81 (70-99) mg/dl Calcium (8.5-10.1) mg/dl Magnesium (1.8-2.4) mg/dl Total Bilirubin (0.2-1) mg/dl AST (15-37) U/L ALT (12-78) U/L Alkaline Phosphatase (45-117) U/L Troponin I (0-0.045) ng/ml Total Protein (6.4-8.2) gm/dl Albumin (3.4-5.0) gm/dl Globulin (2.5-4.0) gm/dl Albumin/Globulin Ratio (0.9-2) Diagnostic Findings CT head/brain wo con CT DOSE: 690.05 mGycm HISTORY: Mental status change ?TIA, LUE numb/speech now resolved, R retro eye BALDWIN TECHNIQUE: Multiaxial CT images of the head were performed without the use of intravenous contrast. A dose lowering technique was utilized adhering to the principles of ALARA. Comparison: None. Findings: The paranasal sinuses and mastoid air cells are clear. The calvarium and skull base are intact. The ventricles and sulci are within normal limits. There is no mass, hematoma, midline shift, or acute infarct. Impression: No acute intracranial abnormality. ACT 112: Negative or not required by law. The above report was generated using voice recognition software. It may contain grammatical, syntax or spelling errors. Electronically signed by: Emerson Ng M.D. 02/19/2020 3:54 PM Dictated: 02/19/20 155 Transcribed: 02/19/20 155 CTA ANGIOGRAPHY OF THE HEAD CLINICAL HISTORY: ?TIA, LUE numb/speech now resolved, R retro eye BALDWIN COMPARISON STUDY: MRI of the brain April 27, 2017. TECHNIQUE: Helical axial images of the head were obtained following uneventful intravenous administration of 120 cc of Optiray 320. Sagittal and coronal reconstructions were viewed as well as maximal intensity projections on an independent 3-D workstation. Automated exposure control was utilized for the study. A dose lowering technique was utilized adhering to the principles of ALARA. CT DOSE: 1049.47 mGycm FINDINGS: Please note that the head CT will be reported separately. Ventricular system is normal. No acute intracranial hemorrhage, midline shift or mass effect is present. Talar cisterns are patent. There are no extra-axial collections. Note is made of multifocal narrowing versus occlusion within the right M2 branches. There may also be narrowing of the distal M1 segment of the right MCA. Adjacent vessels could reflect collaterals or venous opacification. These findings are age indeterminate. Left M1 and M2 segments appear slightly irregular but are probably within normal limits. The right vertebral artery is hypoplastic and ends in PICA. The left vertebral artery is patent. The basilar artery is patent. The bilateral posterior cerebral arteries are patent. There is no intracranial aneurysm. IMPRESSION: 1. Multifocal narrowing versus occlusion with distal reconstitution within several right M2 branches. These findings are age indeterminate and differential considerations include vasospasm, strictures or vasculitis. Thrombosis is also within the differential although considered less likely. 2. No intracranial aneurysm. ACT 112: Negative or not required by law. Electronically signed by: Cayden Hodge M.D. 02/19/2020 4:19 PM Dictated: 02/19/20 1557 Transcribed: 02/19/[address] angio neck with con CLINICAL HISTORY: 39 years-old Female with ?TIA, LUE numb/speech now resolved, R retro eye BALDWIN. Acute strokelike symptoms with headache COMPARISON STUDY: CTA of the head of same day TECHNIQUE: Following the IV administration of 120 mL of Optiray 320, CT angiogram of the neck was performed from the aortic arch to the skull base. Images are reviewed in the axial, sagittal, and coronal planes. 3-D MIPS images are created and assessed. IV contrast was administered without complication. All measurements were calculated based on NASCET criteria. A dose lowering technique was utilized adhering to the principles of ALARA. FINDINGS: The imaged opacified pulmonary artery is unremarkable. Three-vessel morphology of aortic arch. Innominate and proximal subclavian arteries appear patent. Patent common carotid arteries. There is a small web noted within the posterior aspect of the proximal right ICA which measures approximately 3 mm on image 142 series 4. Streak artifact from dental amalgam hardware limits the study. A tiny web measuring approximately 2 mm also noted involving the posterior wall of the proximal left ICA on image 150 series 4. Internal carotid arteries are otherwise unremarkable. Dominant left vertebral artery. Developmentally diminutive right vertebral artery. There is no aneurysm, dissection, high-grade stenosis or proximal branch occlusion. The majority of the right ICA terminates into the PICA. Basilar artery is patent. Lung apices are clear. No pneumothorax. Unremarkable thyroid and soft tissues. Bones appear intact. Mild polypoid mucosal thickening of the right maxillary sinus. IMPRESSION: 1. No aneurysm, dissection, high-grade stenosis or proximal branch occlusion. 2. Small webs are noted involving the proximal cervical segments of the bilateral internal carotid arteries. ACT 112: Negative or not required by law. The above report was generated using voice recognition software. It may contain grammatical, syntax or spelling errors. Electronically signed by: Ramy Rod M.D. 02/19/2020 4:17 PM Dictated: 02/19/20 1606 Transcribed: 02/19/20 1606 Brain MRI: 02/19/2020 Subtle tiny right insular cortical infarction with suggestion of slow flow versus thrombus in the insular branch of the right middle cerebral artery on T2 weighted/FLAIR sequences. Periventricular and subcortical white matter X1pulavkot/FLAIR hyperintensities, nonspecific. No masses or mass-effect. Ventricles appear normal. Mucosal thickening in the right maxillary sinus. ECG Additional Comments: Study shows normal sinus rhythm at 61 bpm, normal axis, SC = 136, QRS = 82, QTc = 416, no evidence of ischemia or LVH Code Status & VTE Plan Code Status Full code PG Care Time/CCT Total # of Minutes Spent Total Time Spent with Patient: Total time spent is greater than 50% in coordination of care (as documented) at patient's floor/unit and/or counseling patient: Coding Level of Care Code 48632 Initial Inpt Care Lvl 2 Diagnoses Stroke I63.9 CVA mechanism: unspecified Pure hypercholesterolemia E78.00 Allergic rhinitis J30.9 Allergic rhinitis trigger: unspecified Allergic rhinitis seasonality: unspecified (1) Allergic rhinitis Allergic rhinitis trigger: unspecified Allergic rhinitis seasonality: unspecified Qualified Code(s): J30.9 - Allergic rhinitis, unspecified (2) Stroke CVA mechanism: unspecified Qualified Code(s): I63.9 - Cerebral infarction, unspecified
[2020-02-20] MEDS ORDERED: ONDANSETRON INJ 2 MG/ML 2 ML VIAL IV PRN (01:18)
[2020-02-20] MEDS ORDERED: ACETAMINOPHEN 325 MG TAB PO PRN (01:18)
[2020-02-20] MEDS ORDERED: PHARMACIST DISCHARGE MED REC CONSULT PRN (01:18)
[2020-02-20 06:33] LABS: Hematocrit (blood only) 42.5 % (37-47); Hemoglobin 15.3 g/dL (12.0-16.0); Immature Granulocytes % (auto) 0.2 %; Lymphocytes # (auto) 1.43 K/uL (1.2-3.4); Lymphocytes % (auto) 10.4 %; Mean Corpuscular Hemoglobin 31.7 pg (25-34); Mean Corpuscular Volume 88.2 fL (80-100); Mean Platelet Volume 9.6 fL (7.4-10.4); Monocytes # (auto) 0.22 K/uL (0.11-0.59); Monocytes % (auto) 1.6 %; Neutrophils # (auto) 12.09 K/uL (1.4-6.5); Neutrophils % (auto) 87.8 %; Platelet Count 388 K/uL (130-400); RDW Coefficient of Variation 12.4 % (11.5-14.5); Red Blood Count 4.82 M/uL (4.2-5.4); White Blood Count 13.77 K/uL (4.8-10.8)
[2020-02-20 06:34] LABS: Immature Granulocytes # (auto) 0.03 K/uL (0.00-0.02)
[2020-02-20 06:54] LABS: Estimated Average Glucose 105 mg/dl; Hemoglobin A1C 5.3 % (4.5-5.6)
--- NOTE | 2020-02-20 06:57 | Magnetic Resonance Report ---
MRI OF THE BRAIN WITHOUT CONTRAST CLINICAL HISTORY: TIA vs complicated migraine symptoms DIFFICULTY SPEAKING COMPARISON STUDY: CT scan dated 02/19/2020, MRI the brain dated 04/27/2017 FINDINGS: Sagittal T1, axial diffusion, proton density and T2 weighted axial, coronal FLAIR, and axial T1-weigh samina images were acquired. No intra or extra-axial mass lesions are visualized Diffusion-weighted images reveal a very small subtle focus of restricted water diffusion within the r ight insula consistent with a small acute/subacute infarct. There is no evidence of ventricular dilatation. Proton density T2-weighted and FLAIR images reveal a stable focus of increased FLAIR signal within th e right frontal white matter. There is a vascular focus of increased signal on FLAIR images in the ri ght insula. This could represent thrombus or slow flow. There are no abnormal flow voids. IMPRESSION: 1. Very small acute/subacute right insular infarct 2. Increased signal involving and insular branch of the right middle cerebral artery. This could repr esent slow flow or thrombus. ACT 112: Negative or not required by law. Electronically signed by: Richard Stafford M.D. 02/20/2020 6:56 AM
[2020-02-20 07:15] LABS: BUN Creatinine Ratio 10.6 (10-20); Blood Urea Nitrogen 8 mg/dl (7-18); Calcium 9.3 mg/dl (8.5-10.1); Carbon Dioxide 23 mmol/L (21-32); Chloride 110 mmol/L (98-107); Creatinine Clr Calc Pharmacy 98.3 ml/min; Est GFR (African American) 112.9; Est GFR (Non-African American) 97.4; Glucose 122 mg/dl (70-99); Potassium 3.7 mmol/L (3.5-5.1); Sodium 141 mmol/L (136-145)
[2020-02-20 07:18] LABS: C Reactive Protein < 0.29 mg/dl (0-0.29); Chol HDL Ratio 5; Cholesterol 296 mg/dl (0-200); HDL Cholesterol 55 mg/dl; LDL Cholesterol Calculated 212 mg/dl; Triglycerides 143 mg/dl (0-150); VLDL Cholesterol 29 mg/dl
--- NOTE | 2020-02-20 08:49 | Hospitalist Progress Note ---
Date of Service February 20, 2020 Assessment & Plan (1) Stroke: 39-year-old female with history of hyperlipidemia presenting with small insular cortical stroke, question thrombus versus vasculitis versus vasospasm noted on CTA and MRI. Patient has been ill for approximately 2 weeks to include headache/fatigue/myalgias/sore throat/nausea/vomiting/diarrhea. COVID testing sent last and is pending. MRI of brain 02/20/20 IMPRESSION: 1. Very small acute/subacute right insular infarct 2. Increased signal involving and insular branch of the right middle cerebral artery. This could represent slow flow or thrombus. CTA brain/Neck 02/20/20 IMPRESSION: 1. Multifocal narrowing versus occlusion with distal reconstitution within several right M2 branches. These findings are age indeterminate and differential considerations include vasospasm, strictures or vasculitis. Thrombosis is also within the differential although considered less likely. 2. No intracranial aneurysm. 1. No aneurysm, dissection, high-grade stenosis or proximal branch occlusion. 2. Small webs are noted involving the proximal cervical segments of the bilateral internal carotid arteries. Check 2D echo hemoglobin A1c 5.3 -lipid panel TC 296, LDL 212, HDL 55, trig 143-> started on lipitor ESR low 12, CRP, ANGÉLICA pending COVID test is NEGATIVE. Aspirin 81 mg p.o. daily -Question verapamil for possible vasospasm on discharge -Neurology consultation ongoing (2) Pure hypercholesterolemia: Repeat fasting lipid panel in a.m. as above -Lipitor 40 mg p.o. daily (3) Allergic rhinitis: Chronic. Well-controlled. Continue singular 10 mg p.o. every afternoon FENHep-Lock. Electrolytes within normal limits. Regular diet as tolerated Prophylaxisdue to concern for COVID possible hypercoagulability leading to stroke will initiate Lovenox 40 mg subcu twice daily Codefull [facility] Admission and Anticipated Discharge Date Admission Date: February 20, 2020 Results & Data Results & Data ([facility]) Vital Signs (Past 12 Hours) Vital Signs Temp Pulse Pulse Resp BP BP Pulse Ox 02/20/20 08:07 98.2 F 68 19 137/83 02/20/20 04:02 98.1 F 87 16 118/72 97 02/20/20 01:38 98.1 F 74 16 117/73 95 02/20/20 01:07 80 18 118/72 96 02/20/20 00:30 80 16 119/73 96 02/19/20 23:00 65 16 114/79 96 02/19/20 22:41 77 18 117/74 95 02/19/20 22:40 78 23 02/19/20 21:30 78 19 96 02/19/20 21:01 79 15 94 02/19/20 21:00 77 20 117/66 95 PG Care Time/CCT Total # of Minutes Spent Total Time Spent with Patient: Total time spent is greater than 50% in coordination of care (as documented) at patient's floor/unit and/or counseling patient: Coding Diagnoses Stroke I63.9 CVA mechanism: unspecified Pure hypercholesterolemia E78.00 Allergic rhinitis J30.9 Allergic rhinitis trigger: unspecified Allergic rhinitis seasonality: unspecified (1) Stroke CVA mechanism: unspecified Qualified Code(s): I63.9 - Cerebral infarction, unspecified (2) Allergic rhinitis Allergic rhinitis trigger: unspecified Allergic rhinitis seasonality: unspecified Qualified Code(s): J30.9 - Allergic rhinitis, unspecified
--- NOTE | 2020-02-20 08:55 | XCELERA ---
[id number]
[2020-02-20] MEDS ORDERED: ENOXAPARIN INJ 40 MG/0.4 ML SYR SQ SCH (09:00)
[2020-02-20] MEDS ORDERED: ASPIRIN 81 MG ECTAB PO SCH (09:00)
[2020-02-20] MEDS ORDERED: ATORVASTATIN 40 MG TAB PO SCH (09:00)
--- NOTE | 2020-02-20 09:12 | Electrocardiogram Report ---
Test Reason : Blood Pressure : / mmHG Vent. Rate : 061 BPM Atrial Rate : 061 BPM P-R Int : 136 ms QRS Dur : 082 ms QT Int : 414 ms P-R-T Axes : 034 028 034 degrees QTc Int : 416 ms Normal sinus rhythm Normal ECG No previous ECGs available Confirmed by Los Christy ([id number]) on 02/20/2020 9:12:32 AM Referred By: Confirmed By:Los Christy
--- NOTE | 2020-02-20 10:52 | Neurology Consultation ---
Date of Consultation February 20, 2020 Assessment & Plan (1) Acute CVA (cerebrovascular accident): (2) Expressive aphasia: (3) Complicated migraine: (4) Cerebral vasospasm: (5) Chronic cerebral ischemia: (6) Hypertension: (7) Pure hypercholesterolemia: this patient is somewhat complicated, particularly in lieu of her history over the past 6 years. She has had significant evaluations by several neurologists over this time. No specific diagnosis was made except for migraines and chronic cerebral ischemia. Patient presented February 18 with an acute stroke of a tiny nature in the right insular cortex. This is likely secondary to severe vasospasm (Complicated migraine ). Hypertension will also cause vasospasm and her blood pressure was elevated. She has evidence of old cerebral ischemia on the right which I believe is unchanged from previous MRIs. Clinically she is doing well with an NIH stroke scale of 0 and no focal neurologic deficits, meningeal signs, or encephalopathy. She has other systemic symptoms including fatigue, insomnia, sore throat and GI symptoms. she Has not had any other specific diagnosis. I cannot exclude an underlying inflammatory disease. Recommendations: 1. 81 mg aspirin tablet daily to prevent small vessel ischemic disease. 2. Verapamil 180 ER once daily to prevent vasospasm and control blood pressure. 3. the patient would be a high dose statin candidate in lieu of her cholesterol level and stroke. 4. consider hypercoagulability panel, Lyme antibody titer, and ANGÉLICA 12. I see no need for lumbar puncture at this time. 5. I need to obtain records from the [facility] neurologist that she saw years ago. 6. I have no further neurologic recommendations to make at this time but would be happy to see her as an outpatient in 2 weeks. overall, I spent a total of 120 minutes with this case including review of rec ords, review of MRI films with doctors Rivera and Naveen, direct evaluation the patient at bedside, and discussion of the case including reviewing MRI films with the patient and her at bedside. I also discussed the case with Dr. Kessler, including differential diagnosis treatment options. History of Present Illness Reason for Consultation: patient is a 39-year-old, who I was asked to see at the request of Dr. Cosby, for neurologic consultation regarding new onset stroke and other issues Requesting Physician: Dr. Cosby Attending Physician: oB Kessler MD History of Present Illness patient tells me that she had no significant headaches or problems up until about 2013 or so. 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 Her weight in 2013 was 130 lb. Throughout most of her adult life she has had GI issues including nausea, vomiting, and diarrhea. She was told she had irritable bowel syndrome. vomiting episodes have been with or without nausea intermittently throughout life. They will wax and wane. She denies any longstanding joint issues. Sometime in 2014 she started getting intermittent symptoms consisting of right facial numbness and tingling as well as headaches. The headaches were pulsatile and throbbing. She ended up seeing Dr. Khanna in April of 2016. an MRI at that time showed 2 small high right parietal subcortical white matter spots without enhancement. Also around this time she started developing fatigue, weight gain and sleep disturbances. There may have been some depression at that time as well And she had some stress because she was getting . Dr. Khanna felt that it could be migraine syndrome or there was a concern about MS. Girishl was of no help. In August of 2016, the patient saw Dr. Chu at our office. She was still getting intermittent right facial numbness some anxiety and depression , and headaches. She also has intermittent fatigue. Symptoms could last a couple of days and then resolved She last saw Dr. Chu in May of 2017. her diagnosis was common migraine without aura help some with nortriptyline but higher doses of tricyclics gave her side effects. Topiramate was started but I do not know at this ended up doing for her. A repeat MRI of the brain in April of 2017 showed 3 nonspecific tiny white matter spots in the right frontal lobe and no vessel abnormalities. Sometime after this the patient saw a neurologist at the [facility] for another opinion. Unfortunately I do not have these records but no diagnosis of MS was made. The patient found out that she had a dairy allergy and much of her symptoms improved following elimination or reduction of dairy. She has not had any episodes of facial numbness for quite a while and her GI symptoms although still occurring, are better if she is avoiding dairy. She still gets intermittent headaches. last month the patient had a left lateral malleolus fracture (distal fibula ) with the accident where she tripped carrying firewood. In addition she had a left midfoot cyst removed by a android architect. She is still wearing a boot but apparently has to remain in this only another week. About 2 weeks ago she had the onset of a sore throat. She had increase in fatigue and she noted a bifrontal headache. This is pulsating and somewhat throbbing but it has transformed into a stabbing pain behind her right eye. There is little in the way of photophobia or sonophobia. She has some nausea and vomiting but this is intermittent as well. These symptoms have waxed and waned over the last 2 weeks. she has had insomnia flare-up as well. On February 17 she had a severe sore throat and increased fatigue. She had the headache. She did not sleep well that night and in the morning of February 18 she noted left hand tingling around 1320. She got up and came out to get a tell because she spilled water on herself ( likely left hand was weak) and when she talked to her to say something, she knew exactly what she wanted to say but no words came out. He heard grunting noises. This lack of ability to speak lasted a minute or 2 and then completely resolved and never returned. She arrived to the emergency room February 18 at 1345 with a temperature of 36.9, pulse is 70s and regular, respiratory rate 16 and comfortable, blood pressure 137/90 and O2 saturation 98%. The patient had no focal deficits of weakness or numbness and had no speech issues. CBC and Chem profile were unremarkable and sed rate was 12. CT scan of the head was unremarkable. CT angiography of the head revealed some narrowings or occlusion of multiple branches of the M2 segments of the right middle cerebral artery CT angiography of the neck was unremarkable. MRI of the brain showed a tiny right insular region stroke. On FLAIR imaging there was 1 deep white matter old ischemic area on the right ( correlates with previous MRI) and a prominent temporal vessel which will likely represented low flow seen as well. Hemoglobin A1c was 5.3. Triglycerides were 143 and cholesterol 296. Repeat CBC and Chem profile were largely unremarkable. Blood pressure was 137/83 this morning. She is asymptomatic this morning although she does have a mild right- sided headache ( 2 to 4/10) she is not fatigued, has no left upper extremity symptoms and has no speech issues. She does have a sore throat still. Allergies Allergy/AdvReac Type Severity Reaction Status Date / Time Sulfa (Sulfonamide Allergy Unknown Rash Verified 02/19/20 14:18 Antibiotics) casein AdvReac Severe Verified 02/20/20 00:21 whey AdvReac Severe Verified 02/20/20 00:21 PROTEIN Allergy Severe SEE NOTE Uncoded 02/19/20 14:18 BELOW - FACIAL NUMBNESS/MIGRAINES Home Medications Home Medications Medication Instructions Recorded Confirmed Type levocetirizine 5 mg tablet 5 mg PO DAILY PRN 04/29/19 02/19/20 History montelukast [Singulair] 10 mg PO QPM 12/27/19 02/19/20 History methylprednisolone See Rx Instructions .ROUTE 02/19/20 Rx .COMPLEX #21 ea verapamil 180 mg PO DAILY 30 Days #30 tab 02/19/20 Rx Patient History Medical History Environmental allergies History of skin cancer REMOVED Migraine Surgical History History of anesthesia reaction SLOW TO WAKE UP History of colonoscopy History of esophagogastroduodenoscopy (EGD) History of surgery EMBRYO DONATION History of tonsillectomy History of tooth extraction Hx of LASIK BOTH EYES Family History Mother Family history of diabetes mellitus Hypertension Grandmother (Paternal) Family hx of colon cancer Father , age 68 of an OR Heart disease Stroke Myocardial infarction Social History Smoking Status: Never smoker Second Hand Exposure: Yes ( A CHILD); Hx Alcohol Use: Yes Alcohol type: beer Alcohol Intake Frequency: 2-3 x/Week Alcohol Intake Frequency Comment: 2 or 3 beers per week Hx Substance Use: No Preferred Language: Venezuelan Communication Ability: Effective 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 Required: No Beliefs That Will Affect Care: None Current Living Situation: Family current occupational status: employed 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 [employer] 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 Feels Safe at Home: Yes Review of Systems Constitutional: + insomnia; no fever, no fatigue and no weakness Eyes: no diplopia, no eye pain and no worsening vision Ear, Nose, Mouth, Throat: + sore throat; no ear pain, no tinnitus, no hearing loss, no dizziness, no snoring, no hoarseness and no dysphagia Respiratory: no cough and no dyspnea Cardiovascular: no chest pain, no palpitations and no lightheadedness Gastrointestinal: no abdominal pain, no nausea and no vomiting Genitourinary: no dysuria, no urinary frequency and no urinary incontinence Musculoskeletal: no back pain, no neck pain, no radicular pain, no joint pain and no myalgia Integumentary: no rash and no lesions Neurologic: + headache(s); no gait abnormality, no localized weakness, no generalized weakness, no tingling, no numbness, no tremor(s), no abnormal movements, no abnormal speech, no confusion and no memory loss Psychiatric: no depression, no irritability, no anxiety, no difficulty concentrating, no confusion and no hallucinations Endocrine: no fatigue and no flushing Hematologic / Lymphatic: no easy bleeding and no easy bruising Allergy / Immunological: no urticaria and no problem reported Results & Data ([facility]) Vital Signs (Past 12 Hours) Vital Signs Temp Pulse Pulse Resp BP BP Pulse Ox 02/20/20 08:07 36.8 C 68 19 137/83 02/20/20 04:02 36.7 C 87 16 118/72 97 02/20/20 01:38 36.7 C 74 16 117/73 95 02/20/20 01:07 80 18 118/72 96 02/20/20 00:30 80 16 119/73 96 02/19/20 23:00 65 16 114/79 96 02/19/20 22:41 77 18 117/74 95 02/19/20 22:40 78 23 Diagnostic Findings MRI OF THE BRAIN WITHOUT CONTRAST CLINICAL HISTORY: TIA vs complicated migraine symptoms DIFFICULTY SPEAKING COMPARISON STUDY: CT scan dated 02/19/2020, MRI the brain dated 04/27/2017 FINDINGS: Sagittal T1, axial diffusion, proton density and T2 weighted axial, coronal FLA IR, and axial T1-weighted images were acquired. No intra or extra-axial mass lesions are visualized Diffusion-weighted images reveal a very small subtle focus of restricted water diffusion within the right insula consistent with a small acute/subacute infarct. There is no evidence of ventricular dilatation. Proton density T2-weighted and FLAIR images reveal a stable focus of increased FLAIR signal within the right frontal white matter. There is a vascular focus of increased signal on FLAIR images in the right insula. This could represent thrombus or slow flow. There are no abnormal flow voids. IMPRESSION: 1. Very small acute/subacute right insular infarct 2. Increased signal involving and insular branch of the right middle cerebral artery. This could represent slow flow or thrombus. ACT 112: Negative or not required by law. Electronically signed by: Richard Stafford M.D. 02/20/2020 6:56 AM PG Care Time/CCT Total # of Minutes Spent Total Time Spent with Patient: Total time spent is greater than 50% in coordination of care (as documented) at patient's floor/unit and/or counseling patient: Coding Level of Care Code 70676 Inpt Consult Level 5 Diagnoses Acute CVA (cerebrovascular accident) I63.9 Expressive aphasia R47.01 Complicated migraine G43.109 Cerebral vasospasm I67.848 Chronic cerebral ischemia I67.82 Hypertension I10 Pure hypercholesterolemia E78.00 Time Spent (min) 120
[2020-02-20] MEDS ORDERED: STROKE PATIENT DISCHARGE STA (11:29)
--- NOTE | 2020-02-20 12:02 | Pharmacy Report ---
Pharmacist Stroke Counseling - Date of Service February 20, 2020 - Scope: Pharmacy has been consulted to provide medication discharge counseling for this patient admitted with [ischemic stroke] [hemorrhagic stroke] [transient ischemic attack] as per the Pharmacist Discharge Counseling for Stroke Patients Ashley mota - Medications on Discharge: Home Medications Medication Instructions Recorded Confirmed levocetirizine 5 mg tablet 5 mg PO DAILY PRN 04/29/19 02/19/20 montelukast [Singulair] 10 mg PO QPM 12/27/19 02/19/20 New Rx's Medication Instructions Recorded methylprednisolone See Rx Instructions .ROUTE 02/19/20 .COMPLEX #21 ea aspirin 81 mg PO DAILY #90 tab 02/20/20 atorvastatin 40 mg PO QAM #90 tab 02/20/20 verapamil 180 mg PO DAILY #90 cap 02/20/20 - Action: The above medications, specifically ones for stroke treatment/prophylaxis, have been reviewed in detail with the patient and/or patient medical sales representative(s) prior to discharge. This includes indication, common adverse reactions, drug interactions, and medication administration. Medication counseling has been employed using the teach-back method to ensure understanding. - Outcome: The patient and/or patient medical sales representative(s) have demonstrated understanding of the medications. Thank you for allowing pharmacy to be involved in the care of this patient. Please call [phone] with any additional questions
[2020-02-20 14:04] LABS: Lyme Ab IgG w/WB Rflx Negative (Negative)
[2020-02-20 14:07] LABS: Lyme Ab IgM w/WB Rflx Negative (Negative)
--- NOTE | 2020-02-20 17:30 | Discharge Summary ---
Date of Service February 20, 2020 Admission HPI Per Admitting Provider Karie Boyer is a 39yo female with history of HLP presenting with new insula cortical infarction. Patient reports she has not been feeling well for the last two weeks. She has had a headache, sore throat, muscle aches, fatigue, nausea and vomiting as well as some loss of taste sensation. She has not had fever/cough or SOB. This afternoon she was at home working when she spilled some water from her water bottle. She noted that her right hand was slightly clumsy and uncoordinated. She tried to call for her and was unable to speak. her asked her to stick out her tongue and noted that it was deviated therefore they came to [facility]. Patient reports that her neurological symptoms have resolved. Her speech is back to normal and she denies numbness, tingling or weakness. She continues to have a dull headache as well as sore throat, muscle aches and fatigue. Patient was seen last in clinic in [place] and had Covid testing sent. She is still waiting for the results. No recent travel. No direct contact with Covid-19 positive individuals. Her [id number] is an urgent care physician but he has not been ill. Patient has a history of complex migraine. She reports that this was secondary to food allergy - Casein and Whey. She has not had a migraine since eliminating these agents from her diet. She is currently not on any migrain prophylactic agents. 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 Lungs are clear to auscultation and appear unlabored Cardiac exam, Rhythm is regular.. No murmurs, rubs or gallops. Abdominal exam reveals normal bowel sounds, soft non tender, no masses Extremities are nonedematous and both pedal pulses are normal. Neurologic exam is alert and oriented, no focal loss of strength or sensation Skin is without bruises or rashes Psychologically is without concerns for anxiety or depression Discharge Data Allergies Allergy/AdvReac Type Severity Reaction Status Date / Time Sulfa (Sulfonamide Allergy Unknown Rash Verified 02/19/20 14:18 Antibiotics) casein AdvReac Severe Verified 07/30/20 00:21 whey AdvReac Severe Verified 02/20/20 00:21 PROTEIN Allergy Severe SEE NOTE Uncoded 02/19/20 14:18 BELOW - FACIAL NUMBNESS/MIGRAINES Consultations 02/19/20 23:24 ED Decision to Admit Stat 02/20/20 01:18 Consult Neurology Routine Ordered Studies 02/19/20 14:07 CT angio head w con Stat CT angio neck with con Stat CT head/brain wo con Stat 02/19/20 16:59 MR brain wo con Urgent Hospital Course (1) Stroke: 39-year-old female with history of hyperlipidemia presenting with small insular cortical stroke, question thrombus versus vasculitis versus vasospasm noted on CTA and MRI. Patient has been ill for approximately 2 weeks to include headache/fatigue/myalgias/sore throat/nausea/vomiting/diarrhea. COVI D testing sent last and is pending. MRI of brain 02/20/20 IMPRESSION: 1. Very small acute/subacute right insular infarct 2. Increased signal involving and insular branch of the right middle cerebral artery. This could represent slow flow or thrombus. CTA brain/Neck 02/20/20 IMPRESSION: 1. Multifocal narrowing versus occlusion with distal reconstitution within several right M2 branches. These findings are age indeterminate and differential considerations include vasospasm, strictures or vasculitis. Thrombosis is also within the differential although considered less likely. 2. No intracranial aneurysm. 1. No aneurysm, dissection, high-grade stenosis or proximal branch occlusion. 2. Small webs are noted involving the proximal cervical segments of the bilateral internal carotid arteries. Check 2D echo hemoglobin A1c 5.3 -lipid panel TC 296, LDL 212, HDL 55, trig 143-> started on lipitor ESR low 12, CRP, ANGÉLICA pending COVID test is NEGATIVE. Aspirin 81 mg p.o. daily -Neurology recommends verapamil extended release 180 once a day this will be ordered (2) Pure hypercholesterolemia: Repeat fasting lipid panel in a.m. as above -Lipitor 40 mg p.o. daily (3) Allergic rhinitis: Chronic. Well-controlled. Continue singular 10 mg p.o. every afternoon Total Time Total Time Spent Total Time Spent (In Minutes): It required greater than 30 minutes to prepare this patient for discharge Discharge Plan Discharge Items Patient Disposition: Home - Self-Care Reason For Visit: CVA Discharge Diagnosis: stroke, possible vasospasm Condition on Discharge: Good Activity: Per Instructions section Activity Comment: slowly resume physical activity Non-emergency contact: Primary Care Provider and Neurologist Call non-emergency contact if: you have any medication questions and your symptoms worsen Follow-up/Referrals: Toby Sherman MD [Physician] - 03/06/20 8:30 am (please obtain previous records from your other neurologist and bring to appointment) Sarah Florian PA-C [Primary Care Provider] - 02/28/20 10:00 am Diet: Heart Healthy Addtl Attending Provider Instructions: Risk Factors for Stroke: You can reduce your chances of stroke by working with your medical provider to adopt a healthy lifestyle. Some specific ways to lower your chance of stroke are: * If you are a smoker, now is the time to stop smoking cigarettes * If you are diabetic, improve the control of your blood sugars * Avoid excessive amounts of alcohol * Control high blood pressure * Lose weight if you are overweight * Be sure to lead an active lifestyle * Eat a healthy diet low in salt, cholesterol and fat You should know about other risk factors for stroke that you are unable to control. These include: * Age 55 years or older * Male gender * Certain racial groups: , or / * Family History of Stroke, Mini stroke or Heart Attack * Sickle Cell Disease Follow Up: It is important for you to keep your follow up appointments with your medical provider. Who to Call and When: Medical Emergencies: Call 911 immediately if you experience any of the following warning signs and symptoms of Stroke: * Sudden numbness or weakness of the face, arm or leg, especially on one side of the body * Sudden confusion, trouble speaking or understanding * Sudden trouble seeing in one or both eyes * Sudden trouble walking, dizziness, loss of balance or coordination * Sudden severe headache with no cause Do not delay calling 911 if you experience any warning signs or symptoms of a stroke. Delay in seeking medical attention may affect what treatments can be given to you. . Pending Studies at Discharge: Yes (laboratory tests will be followed up with Dr Sherman) Stand-Alone Forms: [facility] [employer], Smoking Cessation Medications and DC Order Prescriptions: New atorvastatin 40 mg Tablet 40 mg PO QAM Qty: 90 RF: 3 aspirin 81 mg Tablet,Delayed Release (Dr/Ec) 81 mg PO DAILY Qty: 90 RF: 3 verapamil 180 mg capsule,ext rel. pellets 24 hr 180 mg PO DAILY Qty: 90 RF: 3 Continued levocetirizine [Xyzal] 5 mg tablet 5 mg PO DAILY PRN (Reason: ALLERGIES) RF: 0 montelukast [Singulair] 10 mg tablet 10 mg PO QPM RF: 0 Discharge Orders: Discharge Order (Routine); Ordered 02/20/20 Ordered By: Bo Gregory/Other Patient Handouts: Controlling Your Cholesterol, Cholesterol Lif estyle Changes, Cholesterol Measurement, Risk Factors for Stroke, Stroke Prevention Activity Admission Data Admit Date/Time: 02/20/20 00:10 Attending Provider: Bo Kessler Admit Provider: Archana Cosby Primary Care Provider: Sarah Florian Other Providers: Archana Cosby ; Toby Sherman Other Interventions: Discharge Summary Assessment (RN) Last Done: 02/20/20 11:20 DC Date/Time DO NOT enter until pt leaves facility: 02/20/20 12:57 Coding Level of Care Code D/C Day Management >30 mins Diagnoses Stroke I63.9 CVA mechanism: unspecified Pure hypercholesterolemia E78.00 Allergic rhinitis J30.9 Allergic rhinitis trigger: unspecified Allergic rhinitis seasonality: unspecified
[2020-02-20] MEDS ORDERED: MONTELUKAST SODIUM 10 MG TABLET PO SCH (21:00)
[2020-02-21 09:54] LABS: Anti Nuclear Antibody Screen NEGATIVE (NEGATIVE)
[2020-02-27 21:49] LABS: B2 Glycoprotein IgA <9 SAU (<=20); B2 Glycoprotein IgG <9 SGU (<=20); B2 Glycoprotein IgM <9 SMU (<=20); Phosphatidylserine IgG <10 U/mL (<10); Phosphatidylserine IgM <25 U/mL (<25); Protein S Functional(Activity) 105 % (60-140)
== END 2020-02-20 12:57 | disposition home or self-care (01) | DRG 65 ==
LOC: ED 13:39 → SUATTDRO 02-20 00:10 → 2S 02-20 00:10